=== PATIENT | female | born 1995 | race African-American/Black ===

== ENCOUNTER 2017-03-09 19:45 | Outpatient (CLI) | payer OTHER ==
[~2017-03-09] VITALS: Ht 167.6 cm; Wt 73.5 kg
== END 2017-03-09 22:26 | disposition home or self-care (01) ==
LOC: GENOP 19:45
DX: O26.893 Other specified pregnancy related conditions, third trimester (principal); R10.9 Unspecified abdominal pain; M54.9 Dorsalgia, unspecified; Z3A.33 33 weeks gestation of pregnancy
CPT/HCPCS: 81001; G0463

== ENCOUNTER 2017-03-30 22:16 | Inpatient (IN) | payer OTHER ==
[~2017-03-30] VITALS: Ht 167.6 cm; Wt 73.9 kg
[2017-03-31 08:34] LABS: HEMOGLOBIN 12.1 gm/dl (12.3-15.3); RED BLOOD COUNT 4.32 M/UL (4.00-5.10)
[2017-04-01] MEDS ORDERED: COLACE 100MG C100 MG PO (20:06)
== END 2017-04-01 20:14 | disposition home or self-care (01) | DRG 775 ==
LOC: GENOP 22:16 → OB 03-31 08:05
PROVIDERS: Obstetrics & Gynecology; ADMIT Obstetrics & Gynecology
PROC: 10E0XZZ Delivery of Products of Conception, External Approach (ICD-10-PCS; principal; 2017-03-31)
PROC: 10907ZC Drainage of Amniotic Fluid, Therapeutic from Products of Conception, Via Natural or Artificial Opening (ICD-10-PCS; 2017-03-31)
DX: O60.14X0 Preterm labor third trimester with preterm delivery third trimester, not applicable or unspecified (principal); Z3A.36 36 weeks gestation of pregnancy; Z37.0 Single live birth
CPT/HCPCS: 36415; 51702; 81001; 82800; 85014; 85018; 85025; 90715; G0463; J2590; J2795; J3010; J3430; J7120